=== PATIENT | male | born 1995 | race American Indian/Alaskan Native ===

== ENCOUNTER 2019-08-26 11:17 | Emergency (ER) | payer SELFPAY ==
[2019-08-26 11:26] VITALS: BP 121/76
[2019-08-26] MEDS ORDERED: IPRATROPIUM/ALBUTEROL SULFATE 3 ML AMPUL.NEB IH ONE ×2 (12:44→16:25)
--- NOTE | 2019-08-26 12:44 | Event Note ---
ED Screening Note Date of service: 08/26/19 Time: 12:42 ED Screening Note: Pt with hx of Asthma presents c/o increased wheezing, cough, sob and chest tightness since last week . Moved here from [place] . He is not out of his MDI but states not helping. denies fever, chills or uri symptoms This initial assessment/diagnostic orders/clinical plan/treatment(s) is/are subject to change based on patients health status, clinical progression and re- assessment by fellow clinical providers in the ED. Further treatment and workup at subsequent clinical providers discretion. Patient/guardian urged not to elope from the ED as their condition may be serious if not clinically assessed and managed. Initial orders include: cxr duoneb prednisone
[2019-08-26] MEDS ORDERED: predniSONE 20 MG TAB PO ONE ×2 (12:45→16:14)
--- NOTE | 2019-08-26 13:11 | XRay Report ---
CHEST 2 VIEWS INDICATION / CLINICAL INFORMATION: Asthma. COMPARISON: None available. FINDINGS: SUPPORT DEVICES: None. HEART / MEDIASTINUM: No significant abnormality. LUNGS / PLEURA: No significant pulmonary or pleural abnormality. No pneumothorax. ADDITIONAL FINDINGS: No significant additional findings. IMPRESSION: 1. No acute findings. Signer Name: Jaswant North MD Signed: 08/26/2019 1:07 PM Workstation Name: [id number]
[2019-08-26] MEDS ORDERED: dexAMETHasone 4 MG/ML VIAL IM ONE (16:00)
--- NOTE | 2019-08-26 16:17 | Emergency Department Report ---
ED Asthma HPI - General Chief Complaint: Adult Asthma Stated Complaint: RK/ASTHMA Time Seen by Provider: 08/26/19 12:38 Source: patient Mode of arrival: Ambulatory Limitations: No Limitations - History of Present Illness Initial Comments: Patient is a 24-year-old male who presents emergency room with complaints of a asthma exacerbation that began 5 days ago. Patient states he has associated dry cough, wheezing, shortness of breath, chest tightness. He denies any fever, productive cough, sick contacts, congestion. Patient states that he is here v [facility] from [place] and accidentally left his nebulizer machine at home. He states that he only brought his pro-air inhaler and does not have his Symbicort inhaler. He states he has a past medical history of seasonal allergies. He denies any allergies medications. Patient is a nonsmoker. - Related Data Previous Rx's Medication Instructions Recorded Last Taken Type Budesonide/Formoterol Fumarate 2 puff IH BID #1 hfa.aer.ad 08/26/19 Unknown Rx [Symbicort 80-4.5 Mcg Inhaler] Prednisone [predniSONE 10 mg 10 mg PO .TAPER #1 tab.ds.pk 08/26/19 Unknown Rx (6-Day Pack, 21 Tabs)] Allergies Allergy/AdvReac Type Severity Reaction Status Date / Time No Known Allergies Allergy Verified 08/26/19 11:24 ED Review of Systems ROS: Stated complaint: RK/ASTHMA Other details as noted in HPI Comment: All other systems reviewed and negative ED Past Medical Hx - Past Medical History Previous Medical History?: Yes Hx Asthma: Yes - Surgical History Past Surgical History?: No - Social History Smoking Status: Never Smoker Substance Use Type: None - Medications Home Medications: Home Medications Medication Instructions Recorded Confirmed Last Taken Type Budesonide/Formoterol Fumarate 2 puff IH BID #1 hfa.aer.ad 08/26/19 Unknown Rx [Symbicort 80-4.5 Mcg Inhaler] Prednisone [predniSONE 10 mg 10 mg PO .TAPER #1 tab.ds.pk 08/26/19 Unknown Rx (6-Day Pack, 21 Tabs)] ED Physical Exam - General Limitations: No Limitations General appearance: alert, in no apparent distress - Head Head exam: Present: atraumatic, normocephalic - Eye Eye exam: Present: normal appearance - ENT ENT exam: Present: mucous membranes moist - Respiratory Respiratory exam: Present: decreased breath sounds (mildly decreased breath sounds). Absent: respiratory distress, wheezes, rales, rhonchi, stridor, chest wall tenderness, accessory muscle use, prolonged expiratory - Cardiovascular Cardiovascular Exam: Present: regular rate, normal rhythm, normal heart sounds. Absent: systolic murmur, diastolic murmur, rubs, gallop - Neurological Exam Neurological exam: Present: alert, oriented X3 - Psychiatric Psychiatric exam: Present: normal affect, normal mood - Skin Skin exam: Present: warm, dry, intact ED Course Vital Signs 08/26/19 08/26/19 11:25 16:40 Temperature 98.2 F Pulse Rate 82 Pulse Rate [ 78 Posterior Bilateral Throughout] Respiratory 18 Rate Respiratory 20 Rate [Posterior Bilateral Throughout] Blood Pressure 121/76 O2 Sat by Pulse 98 Oximetry ED Medical Decision Making - Medical Decision Making Patient is a 24-year-old male who presents emergency room with complaints of a asthma exacerbation that began 5 days ago. Patient states he has associated dry cough, wheezing, shortness of breath, chest tightness. He denies any fever, productive cough, sick contacts, congestion. Patient states that he is here visiting from [place] and accidentally left his nebulizer machine at home. He states that he only brought his pro-air inhaler and does not have his Symbicort inhaler. He states he has a past medical history of seasonal allergies. He denies any allergies medications. Patient is a nonsmoker. vitals are normal, afebrile, no tachycardia, normal oxygen saturation. on exam: mildly decreased breath sounds bilaterally, no respiratory distress, no rhonchi, no rales. pt given duo neb. ordered dexamethasone injection but pt states he does not want a "shot and in [place] they just give him a pill." pt given 60 mg of prednisone. on reexamination, pt has very good air movement, no w/r/r, no distress. pt given prescription for prednisone taper and refill of his symbicort inhaler. pt states he is returning to [place] in two days and does "not need a new nebulizer machine or solution refill." advised pt to please take medication as prescribed. Please follow-up with your primary care doctor in the next 2-3 days. Please use all your medications that you are prescribed for your asthma by your primary care doctor. Return to the emergency room for any new or worsening symptoms. Critical care attestation.: If time is entered above; I have spent that time in minutes in the direct care of this critically ill patient, excluding procedure time. ED Disposition Clinical Impression: Asthma Qualifiers: Asthma severity: unspecified severity Asthma persistence: unspecified Asthma complication type: with acute exacerbation Qualified Code(s): J45.901 - Unspecified asthma with (acute) exacerbation Disposition: TO HOME OR SELFCARE Is pt being admited?: No Does the pt Need Aspirin: No Condition: Stable Instructions: Asthma (ED) Additional Instructions: Please take medication as prescribed. Please follow-up with your primary care doctor in the next 2-3 days. Please use all your medications at you are prescribed for your asthma by your primary care doctor. Return to the emergency room for any new or worsening symptoms. Prescriptions: Prednisone [predniSONE 10 mg (6-Day Pack, 21 Tabs)] 10 mg PO .TAPER #1 tab.ds.pk Budesonide/Formoterol Fumarate [Symbicort 80-4.5 Mcg Inhaler] 2 puff IH BID #1 hfa.aer.ad Referrals: PRIMARY CARE, [Primary Care Provider] - 2-3 Days Time of Disposition: 16:41 Print Language: TAMAZIGHT
== END 2019-08-26 17:12 | disposition home or self-care (01) ==
LOC: ED 11:17
DX: J45.901 Unspecified asthma with (acute) exacerbation (principal); Z79.899 Other long term (current) drug therapy
CPT/HCPCS: 71046; 94640; 99283; J1100; 94644